=== PATIENT | male | born 1995 | race Two or more races ===

== ENCOUNTER 2022-01-22 16:23 | Emergency (ER) | payer SELFPAY ==
[2022-01-22 16:37] VITALS: BP 113/74; PULSE 75; RESP 18; TEMP 98; BMI 24.9
[2022-01-22] MEDS ORDERED: LACTULOSE 20 GM/30 ML UDC (FOR ORAL USE ONLY) PO ONE (17:22)
[2022-01-22] MEDS ORDERED: SODIUM PHOSPHATE/NA BIPHOS 133 ML ENEMA PR ONE (17:23)
[2022-01-22] MEDS ORDERED: POLYETHYLENE GLYCOL (HEALTHYLAX) 3350 17 GM PACKET PO ONE (17:30)
[2022-01-22] MEDS ORDERED: LACTULOSE 20 GM/30 ML UDC (FOR ORAL USE ONLY) ONE (17:50)
[2022-01-22] MEDS ORDERED: POLYETHYLENE GLYCOL (HEALTHYLAX) 3350 17 GM PACKET ONE (17:50)
== END 2022-01-22 18:49 | disposition home or self-care (01) ==
LOC: JER 16:23 → JERFT 16:23
DX: K59.00 Constipation, unspecified (principal)
CPT/HCPCS: 99283-25